=== PATIENT | male | born 1950 | race Two or more races ===

== ENCOUNTER 2017-05-07 11:02 | Emergency (ER) | payer OTHER ==
[~2017-05-07] VITALS: Ht 180.3 cm; Wt 87.0 kg
[2017-05-07 11:04] VITALS: Ht 180.3 cm; Wt 87.0 kg
--- NOTE | 2017-05-07 11:29 | ERD ---
ER Documentation Chief Complaint Date/Time DATE: 05/07/17 TIME: 11:26 Chief Complaint sent by PCP for US for bilat legpain x 3 days HPI This is a 67 year-old male presents the emergency department today complaining of bilateral foot and calf pain and cramping for the past 3 days. States he went to his primary care doctor and was sent here to the emergency department for an ultrasound. States he smokes cigarettes. Denies any prolonged travel. States he has multiple health problems with his heart and diabetes and cholesterol. Denies any fevers or chills. ROS All systems reviewed and are negative except as per history of present illness. Medications Home Meds Active Scripts Acetaminophen* (Tylophen*) 500 Mg Capsule, 1 CAP PO Q6H Y for PAIN AND OR ELEVATED TEMP, #30 CAP Prov:YOCASTA OTT PA-C 05/07/17 Allergies Allergies: Coded Allergies: No Known Allergy (Unverified , 05/07/17) PMhx/Soc Medical and Surgical Hx: pt denies Medical Hx, pt denies Surgical Hx Hx Alcohol Use: No Hx Substance Use: No Hx Tobacco Use: No Smoking Status: Never smoker Physical Exam Vitals Vital Signs Date Time Temp Pulse Resp B/P Pulse Ox O2 Delivery O2 Flow Rate FiO2 05/07/17 11:04 98.7 81 20 133/71 97 Physical Exam Const: Talkative, no acute distress Head: Atraumatic Eyes: Normal Conjunctiva ENT: Normal External Ears, Nose and Mouth. Neck: Full range of motion..~ No meningismus. Resp: Clear to auscultation bilaterally Cardio: Regular rate and rhythm, no murmurs Skin: No petechiae or rashes Back: No midline or flank tenderness Ext: Bilateral legs with no obvious deformity. No effusion. No ecchymosis. No erythema or warmth. Pulses 2+. Distal neurovascularly intact. Nontender calves Neur: Awake and alert Psych: Normal Mood and Affect Results 24 hrs DIAGNOSTIC IMAGING REPORT Patient: KEARA DEL REAL : 1950 Age: 67 Sex: M MR #: [id number] DOS: 05/07/17 0000 Ordering MD: YOCASTA OTT PA-C Location: [facility] Room/Bed: PROCEDURE: US bilateral lower extremity veins. CLINICAL INDICATION: Bilateral leg pain and swelling. TECHNIQUE: Multiple longitudinal and transverse images of the bilateral lower extremity veins were obtained with senior scale and color Doppler imaging. The common femoral vein, femoral vein, and popliteal vein were evaluated. 2D grayscale measurements with compression sonography, color Doppler, and pulsed Doppler with augmentation. COMPARISON: No prior studies are available for comparison. FINDINGS: The bilateral common femoral, femoral and popliteal veins are normally compressible throughout. Color flow demonstrates normal filling of the vessels. Normal waveforms are visualized and there is normal response to augmentation. IMPRESSION: 1. No evidence of deep vein thrombosis involving either lower extremity. RPTAT: QQ .Sebas Rubi MD, MD Date Time Electronically viewed and signed by .Sebas Rubi MD, MD on 05/07/2017 11:48 .R/ CC: YOCASTA OTT PA-C Procedures/MDM This is a 67-year-old male who presents to the emergency department today after being referred by his primary care doctor , Dr. Miguel A Stearns at [facility] for an ultrasound. Patient's physical exam is completely benign however given PCPs request Doppler ultrasound was obtained Ultrasound shows no evidence of deep vein thrombosis involving either lower extremity. Patient is afebrile and otherwise well-appearing. His oxygen saturation 97%. Low suspicion for PE, DVT. Patient symptoms at this time is consistent with bilateral leg pain. Low suspicion for acute fracture dislocation as patient had no trauma. Do not feel he requires x-rays at this time. Low suspicion for sciatica as a cause of leg pain given that the pain starts from his knees down. Current pain may be due to musculoskeletal strain versus overuse versus electrolyte abnormalities. Will be given a prescription for Tylenol for pain. Patient instructed to follow back up with his primary care doctor. At this time the patient is stable for discharge and outpatient management. Patient should follow up with their PCP in the next 1-2 days. They may return to the emergency department sooner for any persistent or worsening of symptoms. Patient understood and agreed with the plan. Departure Diagnosis: Primary Impression: Bilateral leg pain Condition: Fair YOCASTA OTT PA-C May 07, 2017 11:29
--- NOTE | 2017-05-07 11:49 | RADRPT ---
PROCEDURE: US bilateral lower extremity veins. CLINICAL INDICATION: Bilateral leg pain and swelling. TECHNIQUE: Multiple longitudinal and transverse images of the bilateral lower extremity veins were obtained with senior scale and color Doppler imaging. The common femoral vein, femoral vein, and popl iteal vein were evaluated. 2D grayscale measurements with compression sonography, color Doppler, and pulsed Doppler with augmentation. COMPARISON: No prior studies are available for comparison. FINDINGS: The bilateral common femoral, femoral and popliteal veins are normally compressible throughout. Col or flow demonstrates normal filling of the vessels. Normal waveforms are visualized and there is no rmal response to augmentation. IMPRESSION: 1. No evidence of deep vein thrombosis involving either lower extremity. RPTAT: QQ .Sebas Rubi MD, MD Date Time Electronically viewed and signed by .Sebas Rubi MD, on 05/07/2017 11:48 .R/
[2017-05-07] MEDS ORDERED: ACET500C5 PO (12:14)
== END 2017-05-07 12:32 | disposition home or self-care (01) ==
LOC: FTE 11:02
DX: M79.605 Pain in left leg (principal); M79.604 Pain in right leg
CPT/HCPCS: 93970; 99283